=== PATIENT | female | born 1965 | race Caucasian/White ===

== ENCOUNTER 2018-01-30 11:54 | Emergency (ER) | payer MEDICARE, OTHER ==
[~2018-01-30] VITALS: Ht 160 cm; Wt 115.0 kg
[2018-01-30] MEDS ORDERED: LORazepam 2 MG/ML, 1ML ONE (12:20)
[2018-01-30 12:36] LABS: BASOPHILS % (AUTO) 0 % (0-1); EOSINOPHILS # (AUTO) 0.01 x10^3/uL (0-0.4); EOSINOPHILS % (AUTO) 0 % (1-7); LYMPHOCYTES # (AUTO) 1.08 x10^3/uL (1-3.4); LYMPHOCYTES % (AUTO) 10 % (22-44); MD NO; MEAN CORPUSCULAR HEMOGLOBIN 31.9 pg (27.0-34.8); MEAN CORPUSCULAR HGB CONC 33.9 g/dL (32.4-35.8); MEAN CORPUSCULAR VOLUME 93.8 fL (80-100); MEAN PLATELET VOLUME 8.8 fL (7.4-10.4); MONOCYTES % (AUTO) 2 % (2-9); NEUTROPHILS # (AUTO) 9.04 x10^3/uL (1.8-6.8); NEUTROPHILS % (AUTO) 88 % (42-75); PLATELET COUNT 318 x10^3/uL (130-400); RED BLOOD COUNT 4.66 x10^6/uL (3.82-5.3); RED CELL DISTRIBUTION WIDTH 12.8 % (9.6-15.2)
[2018-01-30 12:45] LABS: ALBUMIN 3.8 g/dL (3.4-5.0); ANION GAP 9 mmol/L (5-15); CHLORIDE 110 mmol/L (98-107)
[2018-01-30] MEDS ORDERED: LAMO100T PO (12:48)
[2018-01-30 13:02] LABS: CREATININE 1.03 mg/dL (0.55-1.02)
[2018-01-30] MEDS ORDERED: PHENYTOIN SODIUM 50 MG/ML, 5ML IVPB ONE (13:30)
[2018-01-30] MEDS ORDERED: FILTER 0.22 MICRON FOR PHENYTOIN IV PRN (14:00)
[2018-01-30] MEDS ORDERED: PHENYTOIN SODIUM 800 MG in SODIUM CHLORIDE 0.9% 100 ML IV ONE (14:00)
[2018-01-30] MEDS ORDERED: KETOROLAC 30 MG/1 ML IVPush ONE (15:30)
[2018-01-30] MEDS ORDERED: KETOROLAC 30 MG/1 ML ONE (15:34)
[2018-01-30] MEDS ORDERED: PLEASE ENTER ALLERGIES MC SCH (16:00)
[2018-01-30] MEDS ORDERED: VENL75TA PO (16:59)
[2018-01-30] MEDS ORDERED: LEVO200T PO (17:02)
[2018-01-30] MEDS ORDERED: BUSP10TA PO (17:02)
[2018-01-30] MEDS ORDERED: OMEP-110 PO (17:02)
[2018-01-30 18:45] VITALS: BP 147/84
[2018-01-30] MEDS ORDERED: LORazepam 2 MG/ML, 1ML IVPush ONE (19:30)
== END 2018-01-30 19:13 | disposition home or self-care (01) ==
LOC: ED 18:15
DX: G40.309 Generalized idiopathic epilepsy and epileptic syndromes, not intractable, without status epilepticus (principal); F17.200 Nicotine dependence, unspecified, uncomplicated
CPT/HCPCS: 36415; 80048; 80175; 80185; 82040; 85025; 96365; 96375; 99284; J1165; J1885; J2060